=== PATIENT | male | born 1960 | race Caucasian/White ===

== ENCOUNTER 2020-04-27 15:28 | Inpatient (IN) | payer OTHER ==
[~2020-04-27] VITALS: Ht 172.7 cm; Wt 94.6 kg
[2020-04-27] MEDS ORDERED: PRILOSEC10 MG PO (15:31)
[2020-04-27] MEDS ORDERED: LIPITOR40 MG PO (15:32)
[2020-04-27] MEDS ORDERED: NORVASC5 M1 PO (15:32)
[2020-04-27] MEDS ORDERED: FENOFIBRATE160 MG PO (15:32)
[2020-04-27] MEDS ORDERED: SUPER THERAVIT1 EACH PO (15:33)
[2020-04-27] MEDS ORDERED: LORAZEPAM 0.50.5 MG PO (15:33)
[2020-04-27] MEDS ORDERED: ASA81BEC PO (15:33)
[2020-04-27 15:36] VITALS: BP 145/62
[2020-04-27 16:14] LABS: HEMATOCRIT 35.2 % (42.0-52.0); HEMOGLOBIN 11.9 gm/dL (14.0-18.0); MCH 31.8 pg (26.0-34.0); MCHC 33.7 g/dL (28.0-37.0); MCV 94.5 fL (80.0-100.0); PLATELET COUNT 271 thou/uL (150-400); RBC 3.72 mil/uL (4.50-6.00); RDW 13.2 % (10.5-14.5); WBC 16.5 thou/uL (4.0-11.0)
[2020-04-27 16:26] LABS: CALCIUM 9.3 mg/dL (8.5-10.1); POTASSIUM 3.2 mmol/L (3.5-5.1)
[2020-04-27 16:32] LABS: TOTAL BILIRUBIN 1.4 mg/dL (0.2-1.0); TOTAL PROTEIN 7.2 g/dL (6.4-8.2)
[2020-04-27 16:36] LABS: APTT 26.7 Seconds (24.5-32.8); INR 1.1
[2020-04-27 16:37] LABS: ABSOLUTE NEUTROPHILS 14.4 thou/uL (1.4-8.2); PLATELET ESTIMATE NORMAL
[2020-04-27 21:12] VITALS: BP 138/66
[2020-04-27 21:31] VITALS: BP 128/71
[2020-04-27 21:53] VITALS: BP 139/69
[2020-04-27] MEDS ORDERED: ZYRTEC10 M4 PO (22:24)
--- NOTE | 2020-04-28 01:57 | NUR ---
pt admitted to room 216 from ER, pt is awake, alert and oriented, ambulatory, alert and orientedx4, sr on the monitor, admission assessment done and as charted, c/o discomfort from the NG tube, requests for something to help him sleep, data input clerk notified, new orders received and implemented, denies any needs, meds given as per may, NG tube remains clumbed,will continue to monitor and follow poc
[2020-04-28 04:37] VITALS: BP 148/66
[2020-04-28 05:15] LABS: ABSOLUTE NEUTROPHILS 10.7 thou/uL (1.4-8.2); BASOPHILS 0.3 % (0.0-2.0); EOSINOPHILS 0.1 % (0.0-3.0); HEMATOCRIT 34.5 % (42.0-52.0); HEMOGLOBIN 11.4 gm/dL (14.0-18.0); LYMPHOCYTES 6.2 % (24.0-44.0); MCH 31.6 pg (26.0-34.0); MCHC 33.2 g/dL (28.0-37.0); MCV 95.4 fL (80.0-100.0); PLATELET COUNT 253 thou/uL (150-400); POLYS 84.4 % (36.0-66.0); RBC 3.62 mil/uL (4.50-6.00); RDW 12.8 % (10.5-14.5); WBC 12.7 thou/uL (4.0-11.0)
[2020-04-28 05:23] LABS: CALCIUM 8.8 mg/dL (8.5-10.1); CREATININE 0.9 mg/dL (0.7-1.3); MAGNESIUM 1.9 mg/dL (1.8-2.4); POTASSIUM 3.1 mmol/L (3.5-5.1)
--- NOTE | 2020-04-28 06:59 | EKG ---
[place] [address] [employer] [place] [address] ELECTROCARDIOGRAM REPORT Name: SONG GARRETT Room #: 216-P ADM IN M.R.#: [id number] Admission: 04/27/20 Attend Phys: Matthew Silva MD Discharge: Date of : 62 Report #: [id number] [facility] ED Test Date: 2020-04-27 Test Time: 17:01:13 Pat Name: SONG GARRETT Department: Room: Gender: M Quality Inspector: GUNNAR : 1960 Requested By: Sanjeev Linares Order Number: [id number] MD: Bin Flores Measurements Intervals [place] Rate: 93 P: 14 MT: 196 QRS: -76 QRSD: 147 T: -18 QT: 390 QTc: 486 Interpretive Statements Sinus rhythm RBBB and LAFB Artifact in lead(s) I,III,aVR,aVL,aVF No previous ECG available for comparison Electronically Signed On 04-28-2020 6:59:43 INTERNATIONAL TRADE MANAGER by Bin Flores [email or web address] <ELECTRONICALLY SIGNED> By: Bin Flores MD, [facility] 04/28/20 0659 D: [id number] 00 Bin Flores MD, FACC /EPI
--- NOTE | 2020-04-28 08:02 | HC ---
[facility] [place] [address] CONSULTATION Name: SONG GARRETT Room #: 216-P ADM IN M.R.#: [id number] Admission: 04/27/20 Attend Phys: Matthew Silva MD Discharge: Date of : 62 Report #: [id number] THIS REPORT FOR: cc: Norris Siddiqui MD, Rene P. MD [facility] ~ DATE OF SERVICE: 04/27/2020 REASON FOR CONSULTATION: Odynophagia and dysphagia. HISTORY OF PRESENT ILLNESS: The patient is a 59-year-old gentleman who presented to our clinic semi-emergently this morning at the request of Ashley Barron, nurse practitioner, for a 36-hour history of odynophagia. The patient presented originally with a complaint of usual state of health on Monday evening and was eating a meal at [facility]. He did not have any issues with dysphagia or throat pain at that time. While at [facility], he had a series of several sneezes and immediately noted a foreign body sensation in the lower anterior neck. He attempted to clear this sensation by drinking fluids, but was unable to clear the sensation. He went to urgent care where he had a negative COVID and strep test. Since then, he has noted increasing odynophagia and a feeling of "swelling" in the anterior neck and feeling of tightness in his throat. He localizes pain now to the lower aspect of the anterior neck just below the laryngeal prominence. He denies any airway complaint and voicing complaints. He denies any fever, neck pain in the back of the neck or chest pain or dyspnea. He has a previous history of reflux, but this has been well managed with Prilosec. He has not recently had any procedures done in the esophagus or throat and does not recall or having any sharp pains at Monday night while eating. PAST MEDICAL HISTORY AND SURGICAL HISTORY: Notable for adenotonsillectomy. He has a history of hypercholesterolemia and the above-mentioned acid reflux disease. ALLERGIES TO MEDICATIONS: None. MEDICATIONS: Include aspirin 81 mg once a day, amlodipine 5 mg daily, atorvastatin 40 mg a day, fenofibrate 160 mg a day, Prilosec OTC 20 mg a day. FAMILY HISTORY: Notable for diabetes and heart disease in his father. REVIEW OF SYSTEMS: Otherwise negative for any other GI, , cardiovascular or pulmonary issues at this time. PHYSICAL EXAMINATION: He was examined in the office clinic and again in the Radiology Department. Height is 5 feet 8 inches, weight of [address] [place] [address] CONSULTATION Name: SONG GARRETT Room #: 216-P [facility] IN M.R.#: [id number] Admission: 04/27/20 Attend Phys: Matthew Silva MD Discharge: Date of : 62 Report #: [id number] inspection, he does not appear acutely ill. He has a normal sounding voice. Inspection of the ears was unremarkable. The nares show a slight leftward septal spur. The nasal mucosa is normal. Oral cavity and oropharyngeal mucosa is normal. The tonsils are surgically absent. The floor of mouth is without any edema. Palpation of the anterior neck does not reveal any palpable lymphadenopathy or signs or symptoms of cellulitis. There is no subcutaneous emphysema palpated in the anterior neck or lateral neck compartments. The supraclavicular fossa without any subcutaneous air. He has a prominent waddle. A flexible laryngoscopy was undertaken in the office through the left naris with normal appearance to the nasal cavity, nasopharynx, oropharynx, hypopharynx and larynx. The true vocal cords moved normally. There was no deviation of the trachea. There was no sign of any inflammation or erythema in the postcricoid region. CT scan was performed at [facility], which does show a very slight amount of extravasated area around the cervical esophagus. This is the scattered collection which does not appear to be confluent with the esophagus to suggest a prominent air. There was no sign of extravasation of fluid, abscess formation or fat stranding in the cervical esophageal region. The more thoracic esophagus and the mediastinum appears unremarkable. ASSESSMENT: Minor cervical esophageal tear, likely related to aggressive Valsalva maneuver with coughing. PLAN: 1. Since he is over 24 hours from the initial event and is not toxic/septic, I would recommend conservative management. It is likely that the small tear has already sealed off. He will obtain a fluoroscopic-guided NG tube for enteral feeding. He should not be allowed to have anything orally as all substances should go through the NG tube. Previous medications continue to be given IV or through the NG tube and a slurry. I would also recommend use of broad-spectrum IV antibiotics to cover oral fabiola, both aerobes and anaerobes. 2. He should be on PPI regimen to prevent any reflux, which would exacerbate the healing phase. 3. His clinical course will dictate further treatment. As long as he remains afebrile without an elevated white count and does not have any progressively worsening symptoms, I would expect this area to seal off rather rapidly. After several days, we will contemplate getting a swallowing study to ascertain if any leak exists and if not, we will advance to clear liquid diet and observe for 24 hours before discharging. [facility] [address] [place] [address] CONSULTATION Name: SONG GARRETT Room #: 216-P ADM IN M.R.#: [id number] Admission: 04/27/20 Attend Phys: Matthew Silva MD Discharge: Date of : 62 Report #: [id number] Thank you for this consultation. <ELECTRONICALLY SIGNED> By: Camden Viveros MD 04/28/20 08 1535 06 Camden Viveros MD /nt
[2020-04-28 13:14] LABS: URINE BLOOD NEGATIVE (Negative); URINE CLARITY CLEAR; URINE COLOR YELLOW; URINE GLUCOSE-RANDOM* NEGATIVE (Negative); URINE KETONES TRACE (Negative); URINE LEUKOCYTES-REFLEX NEGATIVE (Negative); URINE NITRITE-REFLEX NEGATIVE (Negative); URINE PROTEIN (DIPSTICK) 1+ (Negative); URINE SPECIFIC GRAVITY 1.025 (1.005-1.035)
[2020-04-28 13:32] LABS: URINE BILIRUBIN NEGATIVE (Negative)
[2020-04-28 13:33] LABS: ICTOTEST (BILI CONFIRMATORY) Negative (Negative)
[2020-04-28 13:34] LABS: BACTERIA-REFLEX 1-9 Few /HPF (None Seen); CASTS None Seen /LPF (None Seen); CRYSTALS None Seen /LPF (None Seen); SQUAMOUS None Seen /LPF (0-3); URINE RBC None Seen /HPF (0-2); URINE WBC-REFLEX 0-5 Rare /HPF (0-5)
--- NOTE | 2020-04-28 14:52 | NUR ---
Tube feeding recommendation as follows: Jevity 1.5 at 55 mL/hr (6 cartons/day if no feeding pump available). If IVFs D/C, will need 150 mL H20 q 4 hrs.
[2020-04-28 16:40] VITALS: BP 131/70
--- NOTE | 2020-04-28 19:33 | NUR ---
ASSUMED CARE SHIFT CHANGE. ASSESSMENTS CHARTED.MEDS GIVEN. VSS. DENIES PAIN. NG REMAINS IN PLACE. PT WORKED WITH PHYS THERAPY TOLERATING WELL. PT UP AD RILEY. TUBE FEEDS STARTED PER DR ORDERED--SEE DIETARY ORDERS. PLAN FOR NG TUBE TO REMAIN UNTIL ESOPHAGEAL PERFORATION TO HEAL. POSSIBLE SWALLOW STUDY THIS WEEK. CONTINUING POC PER ORDERS. REPORT PASSED ONTO NOC ANTHONY.
[2020-04-28 19:45] VITALS: BP 129/74
[2020-04-28 23:58] VITALS: BP 114/60
[2020-04-29 04:30] VITALS: BP 134/75
[2020-04-29 04:46] LABS: ALBUMIN 2.4 g/dL (3.4-5.0); CALCIUM 9.1 mg/dL (8.5-10.1); CREATININE 0.9 mg/dL (0.7-1.3); MAGNESIUM 2.2 mg/dL (1.8-2.4); POTASSIUM 3.4 mmol/L (3.5-5.1); TOTAL BILIRUBIN 0.6 mg/dL (0.2-1.0); TOTAL PROTEIN 6.6 g/dL (6.4-8.2)
[2020-04-29 04:55] LABS: HEMATOCRIT 33.6 % (42.0-52.0); HEMOGLOBIN 11.2 gm/dL (14.0-18.0); MCH 31.8 pg (26.0-34.0); MCHC 33.2 g/dL (28.0-37.0); MCV 95.8 fL (80.0-100.0); RBC 3.5 mil/uL (4.50-6.00); WBC 9.4 thou/uL (4.0-11.0)
--- NOTE | 2020-04-29 05:57 | NUR ---
ASSUMED PT CARE AT THE CHANGE OF SHIFT, PT IS AWAKE, ALERT AND ORIENTEDX4, SR/BBB, TOLERATING TUBE FEEDING, DENIES PAIN OR DISCOMFORT, MEDS GIVEN PER MAR, ASSESSMENTS CHARTED, WILL CONTINUE TO MONITOR AND FOLLOW POC
[2020-04-29 08:00] VITALS: BP 141/65
--- NOTE | 2020-04-29 11:53 | NUR ---
Chart reviewed and case discussed with the care team. Geothermal Heat Pump Machinist visited with the pt at bedside and cm role introduced. The pt is hoping to advance diet to clears soon and be able to get the NG dc'd so he can go home this weekend. He is up ad feli in his room and a&ox4. His pcp is Dr. Siddiqui. He has a dobhoff in place for tube feedings and iv atb due to +blood cultures. 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 He lives with his and has no dme hx. He denies any dc planning needs. If he is able to adv diet he will likely go home with outpt f/u and po meds at dc. Will follow along should dc planning needs arise.
[2020-04-29 12:00] VITALS: BP 130/62
--- NOTE | 2020-04-29 13:21 | NUR ---
ST RECEIVED ORDERS FOR BEDSIDE SWALLOW EVALUATION BUT WILL HOLD OFF FOR NOW UNTIL THE PATIENT IS DETERMINED READY FOR ORAL INTAKE. PER DR INGRAM'S NOTE, THE PATIENT WILL HAVE A BARIUM SWALLOW ON MONDAY AFTERNOON AND IF THERE IS NO ESOPHAGEAL LEAK, THE PATIENT WILL INITIATE CLEAR LIQUIDS ON MONDAY.
--- NOTE | 2020-04-29 13:48 | NUR ---
ASSESSMENT CHARTED. PT ALERT AND ORIENTED. VSS. UP IN THE CHAIR THIS SHIFT. DENIED HAVING PAIN OR DISCOMFORT. TUBE FEEDING INFUSING ORDERED. NO CONCERNS AT THIS TIME.
[2020-04-29 16:49] VITALS: BP 135/101
[2020-04-29 19:45] VITALS: BP 160/72
[2020-04-30 03:33] VITALS: BP 139/64
--- NOTE | 2020-04-30 03:50 | NUR ---
pt awake at shift change, with patient, alert and oriented, denies concerns, assessments as charted, vss, meds given as per mar, tf off as per orders, ng tube clamped, no needs at this time, will continue to monitor and follow poc
[2020-04-30 16:45] VITALS: BP 134/68
--- NOTE | 2020-04-30 17:42 | NUR ---
ASSUMED CARE SHIFT CHANGE. ASSESSMENTS CHARTED.MEDS GIVEN. VSS. DENIES PAIN. BARIUM SWALLOW THIS SHIFT REFER TO RESULTS. NG TUBE REMAINS IN PLACE. TUBE FEEDS CONTINUE PER ORDERS. SPOUSE AT BEDSIDE. PLAN FOR PT TO STAY THROUGH WEEKEND. CONTINUING POC. WILL PASS ON REPORT TO NOC RN.
[2020-04-30 19:45] VITALS: BP 148/67
--- NOTE | 2020-05-01 05:04 | NUR ---
ASSUMED PATIENT CARE AT 1845. VITAL SIGNS STABLE WITH PATIENT HAVING NO COMPLAINTS OF PAIN OR NAUSEA. FULLY ALERT AND ORIENTED, PATIENT IS ABLE TO CALL APPROPRIATELY FOR NEEDS AND PARTICIPATE IN CARE. BREATHING STABLE ON ROOM AIR EVIDENCED BY ASSESSMENTS AND SPOT OXYGENATION CHECKS. PATIENT ADAMANT THAT TUBE FEED WAS NOT TO BE DELIVERED AT NIGHT. NURSE PLANS ON SETTING UP BOLUS TUBE FEEDING SCHEDULE WITH PATIENT EARLY THIS MORNING. CONTINUE PLAN OF CARE.
[2020-05-01 05:09] VITALS: BP 137/59
[2020-05-01 07:40] VITALS: BP 146/78
--- NOTE | 2020-05-01 08:45 | NUR ---
ASSUMED PT CARE AT THIS TIME. VSS WILL CONTINUE TO MONITOR PT. PT ATTEMPTING NG FEEDING. PT TOLERATING OKAY.
[2020-05-01 11:30] VITALS: BP 136/63
[2020-05-01 11:35] VITALS: BP 147/70
--- NOTE | 2020-05-01 11:54 | NUR ---
PT TOLERATED BOLUS TUBE FEEDING AT 0900 AND AGAIN AT 1100. PT AGREED TO REPEAT BOLUS AT 1300, 1500, 1700, AND 1900 TO ENSURE HE TAKES IN THE 6 BOTTLES OF JEVITY. VSS. WILL CONTINUE TO MONITOR.
--- NOTE | 2020-05-01 14:25 | NUR ---
PT TOLERATING FEEDING WELL. PT RESTING. VSS. WILL CONTINUE TO MONITOR.
[2020-05-01 15:20] VITALS: BP 147/70
--- NOTE | 2020-05-01 17:07 | NUR ---
Case discussed with the care team. Pt had jazmin stanley. No change in orders. Plan additional surgery on monday. Continue NG with enteral feedings. Pt up walking in the hallways and hoping after Monday he can advance his diet and go home.
--- NOTE | 2020-05-01 18:01 | NUR ---
PT HAS 2 BOLUSES LEFT FOR INTAKE. PT DECIDED TO TAKE BREAK WITH FAMILY AT BEDSIDE. VSS. WILL CONTINUE TO MONITOR.
[2020-05-01 19:45] VITALS: BP 142/66
[2020-05-02 04:15] VITALS: BP 133/65
--- NOTE | 2020-05-02 07:32 | NUR ---
ASSUMED CARE FOR PATIENT AT THIS TIME. PT SLEEPING ON RIGHT SIDE WITH LIGHTS OFF, PT STATES WHEN HE IS SLEEPING HE WOULD LIKE TO BE LEFT ALONE. WILL ROUND ON PATIENT IN ANOTHER HOUR. ASSESSMENT CHARTED. VSS. WILL CONTINUE TO MONITOR.
[2020-05-02 07:35] VITALS: BP 136/68
[2020-05-02 11:45] VITALS: BP 132/66
[2020-05-02 15:40] VITALS: BP 141/64
--- NOTE | 2020-05-02 16:04 | NUR ---
PT TRANSFERRED ROOMS DUE TO PRIORITY OF CARE. PT UNDERSTANDABLE. PT TOLERATED 1500 NG TUBE FEEDING. VSS. WILL CONTINUE TO MONITOR.
--- NOTE | 2020-05-02 18:01 | NUR ---
PT HAS TOLERATED NG FEEDINGS WELL TODAY. PT DENIES DIARRHEA TODAY, HOWEVER ALOT OF GAS WITH THE FEEDINGS. PT WALKED THE UNIT MULTIPLE TIMES. PT DENIES PAIN AT THIS TIME. VSS. WILL CONTINUE TO MONITOR.
[2020-05-02 20:00] VITALS: BP 155/72
[2020-05-03 04:28] LABS: CALCIUM 8.8 mg/dL (8.5-10.1); CREATININE 0.8 mg/dL (0.7-1.3); MAGNESIUM 1.7 mg/dL (1.8-2.4); POTASSIUM 3.3 mmol/L (3.5-5.1)
[2020-05-03 04:38] LABS: HEMATOCRIT 32.8 % (42.0-52.0); HEMOGLOBIN 10.8 gm/dL (14.0-18.0); MCH 31.8 pg (26.0-34.0); MCV 96.4 fL (80.0-100.0); RBC 3.41 mil/uL (4.50-6.00); RDW 13.1 % (10.5-14.5); WBC 6.7 thou/uL (4.0-11.0)
[2020-05-03 07:55] VITALS: BP 140/85
--- NOTE | 2020-05-03 10:21 | NUR ---
ASSUMED PT CARE AT 0700. PT RESTING. AT 0900 PT HAD HIS FIRST TUBE FEED OF THE DAY. TOLERATED WELL. VSS. PT DENIES PAIN AT THIS TIME. ASSESSMENT UNCHANGED.
--- NOTE | 2020-05-03 11:34 | NUR ---
PT TOLERATED SECOND FEEDING WELL, PT IS NOW WALKING THE HALLS WITH THE IV PUMP. VSS. ASSESSENT UNCHANGED. WILL CONTINUE TO MONITOR.
[2020-05-03 11:55] VITALS: BP 137/73
--- NOTE | 2020-05-03 15:34 | NUR ---
PT TOLERATED FEED WELL. PT DOING A PUZZLE WITH . VSS. WILL CONTINUE TO MONITOR.
[2020-05-03 16:15] VITALS: BP 147/78
--- NOTE | 2020-05-03 17:13 | NUR ---
PT TOLERATED 1700 TUBE FEED WELL. AWAITING IV TEAM TO INSERT A NEW IV, PTS IV WAS LEAKING. VSS. WILL CONTINUE TO MONITOR.
--- NOTE | 2020-05-03 18:36 | NUR ---
PT TOLERATED LAST TUBE FEED WELL. VSS. WILL CONTINUE TO MONITOR.
[2020-05-03 21:13] VITALS: BP 176/93
[2020-05-03 23:30] VITALS: BP 178/85
[2020-05-03 23:40] VITALS: BP 172/85
[2020-05-04 04:55] VITALS: BP 156/70
--- NOTE | 2020-05-04 06:00 | NUR ---
SLEPT AT INTERVALS TONIGHT. 3000 CC UO THIS SHIFT. NG TUBE INTACT PT IS ANXIOUS TO SEE DOCTORS THIS AM LUNGS CLEAR ON ROOM AIR. PROGRESSING TOWARD GOALS.
[2020-05-04 08:05] VITALS: BP 162/81
--- NOTE | 2020-05-04 09:53 | NUR ---
ASSUMED PT CARE AT 0700. PT PREPARING FOR XRAY, SWALLOW EVAL AT 0800. PT DENIES PAIN AT THIS TIME. VSS. ASSESSMENT UNCHANGED. WILL CONTINUE TO MONITOR.
--- NOTE | 2020-05-04 10:48 | NUR ---
PTS IV INFILTRATED, ATTEMPTED TO CONTACT DR GONZALES ABOUT PLAN OF CARE AND POSSIBILITY OF A PICC SINCE PT IS ON ABX THERAPY.
[2020-05-04 11:15] VITALS: BP 148/65
[2020-05-04 11:45] VITALS: BP 155/85
--- NOTE | 2020-05-04 15:59 | NUR ---
Patient had barium swallow eval. Sp with Dr Viveros and production support engineer frank. Patient to discharge home with NG tube for a few days with Jevity 1.5. Referral to [facility] for benefits. patient has not met $3500 dedectable. He has exclusion of nutrtion therefor would need to but Jevity out of pocket. Discussed with RN and patient.
[2020-05-04 16:00] VITALS: BP 156/88
--- NOTE | 2020-05-04 16:32 | NUR ---
FAXED REFERRAL TO [facility] RECEIVED CONFIRMATION SPOKE WITH DIOR IN INTAKE.
--- NOTE | 2020-05-04 16:40 | NUR ---
I HAVE ATTEMPTED TO CONTACT DR. INGRAM X2 ABOUT PATIENTS INFILITRATED IV. IV TEAMS STATES THIS IS THE 2 SECOND IV TODAY AND TO REACH OUT TO THE DR ABOUT SWITCHING IV ABX TO PO SINCE PT HAS A D/C PLAN TOMORROW.
--- NOTE | 2020-05-04 17:59 | NUR ---
PT UP WALKING AROUND THE UNIT, VSS. PT INFORMED OF IV MEDICATIONS BEING SWITCHED TO PO. PT TOLERATING FEEDS WELL. WILL CONTINUE TO MONITOR.
[2020-05-04 20:00] VITALS: BP 170/81
[2020-05-05 04:39] LABS: CALCIUM 9.4 mg/dL (8.5-10.1); CREATININE 0.9 mg/dL (0.7-1.3); MAGNESIUM 1.8 mg/dL (1.8-2.4); POTASSIUM 3.5 mmol/L (3.5-5.1)
[2020-05-05 04:45] VITALS: BP 130/78
[2020-05-05 05:11] LABS: ABSOLUTE NEUTROPHILS 5.6 thou/uL (1.4-8.2); BASOPHILS 0.5 % (0.0-2.0); EOSINOPHILS 1.8 % (0.0-3.0); HEMATOCRIT 34.9 % (42.0-52.0); HEMOGLOBIN 11.5 gm/dL (14.0-18.0); LYMPHOCYTES 16.7 % (24.0-44.0); MCH 31.5 pg (26.0-34.0); MCHC 33.1 g/dL (28.0-37.0); MCV 95.4 fL (80.0-100.0); MONOCYTES 14.1 % (1.0-8.0); POLYS 66.9 % (36.0-66.0); RBC 3.66 mil/uL (4.50-6.00); RDW 13.1 % (10.5-14.5); WBC 8.4 thou/uL (4.0-11.0)
[2020-05-05 05:16] LABS: PLATELET COUNT 549 thou/uL (150-400)
--- NOTE | 2020-05-05 06:19 | NUR ---
PATIENTS CARES WERE ASSUMED AT SHIFT CHANGE. PATIENT DID REQUEST MEDS TO HELP HIM SLEEP. THIS PATIENT IS GONING HOME TODAY. LAB CALLED AT 0444 PLATELETS ARE 549 WITH THE MORNING LAB RUN. ROUNDS WERE MADE. THE BED IS IN A LOW AND LOCKED POSITION.
[2020-05-05 07:40] VITALS: BP 138/73
[2020-05-05] MEDS ORDERED: AUGMENTIN400 MG/53 PER TUBE ×2 (10:58→11:02)
[2020-05-05] MEDS ORDERED: FLONASE 0.05%50 MCG NASAL (11:05)
[2020-05-05 11:55] VITALS: BP 149/74
[2020-05-05 12:24] VITALS: BP 138/73
--- NOTE | 2020-05-05 14:52 | NUR ---
ASSUMED CARE OF PT AT SHIFT CHANGE. ASSESSMENTS CHARTED. MEDS GIVEN PER MAY. PT A&OX4, NO C/O PAIN. BOLUS FEEDINGS TOLERATED WELL. DISCHARGE ORDERS AND INSTRUCTIONS COMPLETE. TAUGHT HOW TO ADMINISTER BOLUS FEEDINGS, MED ADMINISTRATION AND FLUSHES. STAFF WALKED PT TO ER ENTRANCE TO WAITING IN CAR.
--- NOTE | 2020-05-05 16:16 | NUR ---
Supplied patient with initial tube feeding supplies. Patient to d/c home today and plan f/u with Dr Viveros on Monday. Patient with no need for home health. Teaching from hospital RN. Patient aware insurance does not cover his formula. He was given [employer] number for supplies or can use [employer] or [employer]. Plan home today.
== END 2020-05-05 14:58 | disposition home or self-care (01) | DRG 871 ==
LOC: ER 15:28 → 2N 21:32
PROVIDERS: Emergency Medicine; Otolaryngology; ADMIT Internal Medicine; ATTEND Internal Medicine
DX: A41.89 Other specified sepsis (principal); K22.3 Perforation of esophagus; E87.1 Hypo-osmolality and hyponatremia; E87.6 Hypokalemia; K21.9 Gastro-esophageal reflux disease without esophagitis; I10 Essential (primary) hypertension; E78.5 Hyperlipidemia, unspecified; F41.9 Anxiety disorder, unspecified; Z79.82 Long term (current) use of aspirin; Z79.899 Other long term (current) drug therapy; Z20.822 Contact with and (suspected) exposure to COVID-19
CPT/HCPCS: 10081

== ENCOUNTER → 2020-04-27 | Outpatient (CLI) | payer OTHER ==
[~2020-04-27] MED LIST: ASA81BEC PO; FENOFIBRATE160 MG PO; LIPITOR40 MG PO; LORAZEPAM 0.50.5 MG PO; NORVASC5 M1 PO; PRILOSEC10 MG PO; SUPER THERAVIT1 EACH PO; ZYRTEC10 M4 PO
== END | disposition home or self-care (01) ==
LOC: CAT 12:53
PROVIDERS: ATTEND Otolaryngology
DX: M54.2 Cervicalgia (principal); S19.9XXA Unspecified injury of neck, initial encounter; Z98.890 Other specified postprocedural states; Z79.899 Other long term (current) drug therapy; X58.XXXA Exposure to other specified factors, initial encounter; Y93.89 Activity, other specified; Y92.89 Other specified places as the place of occurrence of the external cause; Y99.8 Other external cause status

== ENCOUNTER → 2020-05-29 | Outpatient (CLI) | payer OTHER ==
[~2020-05-29] MED LIST changes: +AUGMENTIN400 MG/53 PER TUBE; +FLONASE 0.05%50 MCG NASAL
== END ==
LOC: RAD 08:58
PROVIDERS: ATTEND Otolaryngology
DX: K22.3 Perforation of esophagus (principal)

== ENCOUNTER → 2020-06-10 | Outpatient (CLI) | payer OTHER | LOC: RAD 09:09 | PROVIDERS: ATTEND Otolaryngology | DX: K22.3 Perforation of esophagus (principal); M79.89 Other specified soft tissue disorders ==